=== PATIENT | male | born 1960 | race Caucasian/White ===

== ENCOUNTER 2016-12-29 14:30 | Emergency (ER) | payer BC ==
[2016-12-29] MEDS ORDERED: NS 0.9% 1000 ML* 1,000 ML IV ONE (16:54)
[2016-12-29 17:10] LABS: Hematocrit 45 % (42-52); Mean Corpuscular HGB Conc 34 g/dl (31-36); Mean Corpuscular Hemoglobin 30 pg (27-31); Mean Corpuscular Volume 90 fL (80-94); Mean Platelet Volume 8 um3 (7.4-10.4); Red Blood Count 4.95 10^6/ul (4.0-5.4); Red Cell Distribution Width 13 % (10.5-15); White Blood Count 13.8 10^3/ul (3.5-10.8)
--- NOTE | 2016-12-29 17:25 | RAD ---
INDICATION: Near syncope COMPARISON: None. TECHNIQUE: Single AP portable view of the chest was obtained. FINDINGS: Image quality is compromised due to the relative inferiority of a portable chest x-ray. The heart and mediastinum exhibit normal size and contour. The lungs are grossly clear. There is no evidence of a large pleural effusion. Visualized bones are normal for the patient's age. IMPRESSION: No radiographic evidence for acute cardiopulmonary abnormality on this portable chest x-ray.
[2016-12-29 17:44] LABS: Albumin 4.5 g/dL (3.2-5.2); BUN/Creatinine Ratio 18.5 (8-20); Calcium 9.7 mg/dL (8.6-10.3); EGFR African American 91.3 (>60); Globulin 3.5 g/dL (2-4); Magnesium 2.2 mg/dL (1.9-2.7); Potassium 4.2 mmol/L (3.5-5.0); Total Bilirubin 0.8 mg/dL (0.2-1.0)
[2016-12-29 17:45] LABS: Troponin I 0.01 ng/mL (<0.04)
[2016-12-29 18:06] LABS: TSH (Thyroid Stimulating Horm) 2.89 mcIU/mL (0.34-5.60)
[2016-12-29 18:32] LABS: Urine Bilirubin Negative (Negative); Urine Glucose Negative (Negative); Urine Nitrite Negative (Negative)
[2016-12-29 18:53] VITALS: BP 131/75
--- NOTE | 2016-12-30 08:02 | ED ---
Leigha Ruvalcaba Rebecca, scribed for Kaiden England MD on 12/29/16 at 1641 . Dizziness - HPI Summary HPI Summary: Pt is a 56 y/o M who presents to ED from Urgent Care c/o dizziness characterized as lightheadedness. Sx began 3 days ago after increasing his Lisinopril dosage. S/p CVA 2 months ago he was prescribed Lisinopril 10 mg and it was changed 4 days ago to a higher dose with hydrochlorothiazide. Additionally notes an episode of near syncope yesterday while shopping. Sx aggravated and alleviated by nothing. Notes that his BP has been oscillating since medication change though it is usually 110-120 systolic. Reports he has been recovering well from the CVA. States that he has been helping his daughter move in and things have been chaotic and he is not eating as often or as well as he should be. - History Of Current Complaint Chief Complaint: EDDizziness Stated Complaint: HIGH BLOOD SUGAR Time Seen by Provider: 12/29/16 16:38 Hx Obtained From: Patient Onset/Duration: Still Present Character: Lightheaded, Dizzy Aggravating Factor(s): Nothing Alleviating Factor(s): Nothing Associated Signs And Symptoms: Positive: Other: - Near syncope - Allergies/Home Medications Allergies/Adverse Reactions: Allergies Allergy/AdvReac Type Severity Reaction Status Date / Time No Known Allergies Allergy Verified 12/29/16 14:45 PMH/Surg Hx/FS Hx/Imm Hx Endocrine/Hematology History: Denies: Hx Diabetes Cardiovascular History: Denies: Hx Coronary Artery Disease Neurological History: Reports: Hx CVA - Cancer History Cancer Type, 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 GENERAL: ~Patient is a well-developed and nourished male who is lying comfortable in the stretcher. ~Patient is not in any acute respiratory distress. HEAD AND FACE: No signs of trauma. ~No ecchymosis, hematomas or skull depressions. No sinus tenderness. EYES: PERRLA, EOMI x 2, No injected conjunctiva, no nystagmus. EARS: Hearing grossly intact. Ear canals and tympanic membranes are within normal limits. MOUTH: Dry mucous membranes. NECK: Supple, trachea is midline, no adenopathy, no JVD, no carotid bruit, no c- spine tenderness, neck with full ROM. CHEST: Symmetric, no tenderness at palpation LUNGS: Clear to auscultation bilaterally. No wheezing or crackles. CVS: Regular rate and rhythm, S1 and S2 present, no murmurs or gallops appreciated. ABDOMEN: Soft, non-tender. No signs of distention. No rebound no guarding, and no masses palpated. Bowel sounds are normal. EXTREMITIES: FROM in all major joints, no edema, no cyanosis or clubbing. NEURO: Alert and oriented x 3. No acute neurological deficits. Speech is normal and follows commands. SKIN: Dry and warm Triage Information Reviewed: Yes Vital Signs On Initial Exam: Initial Vitals Temp Pulse Resp BP Pulse Ox 98.1 F 86 17 147/93 99 12/29/16 14:39 12/29/16 14:39 12/29/16 14:39 12/29/16 14:39 12/29/16 14:39 Vital Signs Reviewed: Yes Diagnostics - Vital Signs Vital Signs Temp Pulse Resp BP Pulse Ox 12/29/16 14:39 98.1 F 86 17 147/93 99 - Laboratory Lab Results: Lab Results 12/29/16 12/29/16 12/29/16 Range/Units 17:02 17:02 18:23 WBC 13.8 H (3.5-10.8) 10^3/ul RBC 4.95 (4.0-5.4) 10^6/ul Hgb 15.0 (14.0-18.0) g/dl Hct 45 (42-52) % MCV 90 (80-94) fL MCH 30 (27-31) pg MCHC 34 (31-36) g/dl RDW 13 (10.5-15) % Plt Count 333 (150-450) 10^3/ul MPV 8 (7.4-10.4) um3 Neut % (Auto) 67.4 (38-83) % Lymph % (Auto) 22.6 L (25-47) % Mitchell % (Auto) 7.1 (1-9) % Eos % (Auto) 2.6 (0-6) % Baso % (Auto) 0.3 (0-2) % Absolute Neuts (auto) 9.3 H (1.5-7.7) 10^3/ul Absolute Lymphs (auto) 3.1 (1.0-4.8) 10^3/ul Absolute Monos (auto) 1.0 H (0-0.8) 10^3/ul Absolute Eos (auto) 0.4 (0-0.6) 10^3/ul Absolute Basos (auto) 0 (0-0.2) 10^3/ul Absolute Nucleated RBC 0.01 10^3/ul Nucleated RBC % 0 Sodium 129 L (133-145) mmol/L Potassium 4.2 (3.5-5.0) mmol/L Chloride 92 L (101-111) mmol/L Carbon Dioxide 30 (22-32) mmol/L Anion Gap 7 (2-11) mmol/L BUN 20 (6-24) mg/dL Creatinine 1.08 (0.67-1.17) mg/dL Est GFR ( Amer) 91.3 (>60) Est GFR (Non-Af Amer) 71.0 (>60) BUN/Creatinine Ratio 18.5 (8-20) Glucose 107 H (70-100) mg/dL Calcium 9.7 (8.6-10.3) mg/dL Magnesium 2.2 (1.9-2.7) mg/dL Total Bilirubin 0.80 (0.2-1.0) mg/dL AST 23 (13-39) U/L ALT 35 (7-52) U/L Alkaline Phosphatase 70 (34-104) U/L Troponin I 0.01 (<0.04) ng/mL Total Protein 8.0 (6.4-8.9) g/dL Albumin 4.5 (3.2-5.2) g/dL Globulin 3.5 (2-4) g/dL Albumin/Globulin Ratio 1.3 (1-3) TSH 2.89 (0.34-5.60) mcIU/mL Urine Color Yellow Urine Appearance Clear Urine pH 6.0 (5-9) Ur Specific [place] 1.008 L (1.010-1.030) Urine Protein Negative (Negative) Urine Ketones Negative (Negative) Urine Blood Negative (Negative) Urine Nitrate Negative (Negative) Urine Bilirubin Negative (Negative) Urine Urobilinogen Negative (Negative) Ur Leukocyte Esterase Negative (Negative) Urine Glucose Negative (Negative) Result Diagrams: 12/29/16 17:02 12/29/16 17:02 Lab Statement: Any lab studies that have been ordered have been reviewed, and results considered in the medical decision making process. - Radiology CXR Xray Interpretation: No Acute Changes - No radiographic evidence for acute cardiopulmonary abnormality on this portable chest x-ray. Radiology Interpretation Completed By: Radiologist - EKG 1451 Cardiac Rate: NL - 77 bpm EKG Rhythm: Sinus Rhythm EKG Interpretation: No ST elevation. Q wave in V3 Re-Evaluation - Re-Evaluation First Eval Re-Evaluation Time: 18:38 Change: Improved Comment: Discussed CXR, EKG and lab results with the pt as well as D/C plan. Dizzy Course/Dx - Course Assessment/Plan: Pt is a 56 y/o M who presents to ED from Urgent Care c/o dizziness characterized as lightheadedness. Sx began 3 days ago after increasing his Lisinopril dosage. S/p CVA 2 months ago he was prescribed Lisinopril 10 mg and it was changed 4 days ago to a higher dose with hydrochlorothiazide. Additionally notes an episode of near syncope yesterday while shopping. Sx aggravated and alleviated by nothing. Notes that his BP has been oscillating since medication change though it is usually 110-120 systolic. Reports he has been recovering well from the CVA. States that he has been helping his daughter move in and things have been chaotic and he is not eating as often or as well as he should be. Test results within normal limits except WBC of 13.8, sodium 129, glucose 107. CXR shows no acute pathology and EKG normal sinus rhythm w/o any ST elevations. In the ED course, the pt was rehydrated. The pt continues to be asymptomatic. BP is 131/79, HR is 81, O2 sat is 97% on RA. Possibly, the sx are secondary to his dehydration, therefore the pt will be D/C to home to f/u with PCP. Pt is hemodynamically stable and A&Ox3. I discussed all the findings and test results with the patient. Patient was instructed to return to the emergency room immediately if any of the symptoms return or worsens. Plan of care was discussed with the patient and understands and agrees. All questions were answered at patient satisfaction. There were no further complaints or concerns. Lung exam before discharge: CTA B/L. Good air exchange. No wheezing or crackles heard. CVS: S1 and S2 present. No murmurs appreciated. Patient is alert and oriented x 3. Patient is hemodynamically stable. Patient will be discharged home with follow up PCP in the next 2-3 days - Diagnoses Provider Diagnoses: Dizziness, Dehydration Discharge - Discharge Plan Condition: Stable Disposition: HOME Patient Education Materials: Dizziness (ED), Dehydration (ED) Referrals: Non Staff,Doctor [Primary Care Provider] - 3 Days The documentation as recorded by the Leigha salinas Rebecca accurately reflects the service I personally performed and the decisions made by me, Kaiden England MD.
== END 2016-12-29 19:00 | disposition home or self-care (01) ==
LOC: ED 14:30
DX: R42 Dizziness and giddiness (principal); R55 Syncope and collapse; E86.0 Dehydration
CPT/HCPCS: 36415; 71010; 80053; 81003; 83735; 84443; 84484; 85025; 93005; 99283